=== PATIENT | female | born 2000 | race American Indian/Alaskan Native ===

== ENCOUNTER 2022-06-12 14:06 | Emergency (ER) | payer OTHER ==
[2022-06-12 14:16] VITALS: BP 115/50; PULSE 90; RESP 18; TEMP 98.2; BMI 20.4
[2022-06-12] MEDS ORDERED: IBUPROFEN 400 MG TABLET (FP) PO ONE ×2 (15:21→16:25)
[2022-06-12 15:50] LABS: HCG,QUALITATIVE URINE Negative
[2022-06-12 16:25] LABS: EPI CELLS 32 /uL (0-25.1); HYALINE CASTS 3 /uL (0-3.1); PH,URINE 5.5 (5.0-8.0); URINE APPEARANCE TURBID; URINE BACTERIA 828 /uL (0-1359); URINE BILIRUBIN NEGATIVE (NEGATIVE); URINE COLOR DK YELLOW; URINE GLUCOSE (UA) NEGATIVE (NEGATIVE); URINE KETONE 3+ (NEGATIVE); URINE LEUK ESTERASE 3+ (NEGATIVE); URINE NITRITE NEGATIVE (NEGATIVE); URINE PROTEIN 2+ (NEGATIVE); URINE RBC 668 /uL (0-23.9); URINE WBC 19225 /uL (0-25.8)
[2022-06-12] MEDS ORDERED: CEFPODOXIME PROXETIL 100 MG TABLET PO ONE (16:32)
== END 2022-06-12 18:12 | disposition home or self-care (01) ==
LOC: JER 14:06
DX: N39.0 Urinary tract infection, site not specified (principal)
CPT/HCPCS: 76775-TC; 81003; 84703; 99284-25

== ENCOUNTER 2023-09-16 23:46 | Emergency (ER) | payer OTHER ==
[2023-09-16 23:52] VITALS: TEMP 99.1; BMI 18.8
[2023-09-17] MEDS: ONDANSETRON 4 MG/2 ML VIAL IVPUSH ONE (01:27)
[2023-09-17] MEDS ORDERED: METOCLOPRAMIDE HCL INJECTION 10 MG/2 ML VIAL ONE (01:37)
[2023-09-17] MEDS ORDERED: FAMOTIDINE 20 MG/50 ML IVPB 20 MG/50 ML MG IVPB ONE (01:38)
[2023-09-17] MEDS: LACTATED RINGERS SOLUTION 1000 ML INFUS.BAG IV ONE ×2 (01:50→02:50)
[2023-09-17] MEDS: METOCLOPRAMIDE HCL INJECTION 10 MG/2 ML VIAL IVPUSH ONE (01:57)
[2023-09-17 02:02] LABS: BASO % 0.3 % (0-2.0); EOS % 0.2 % (0-4.5); HEMATOCRIT 41.1 % (32.4-45.2); HEMOGLOBIN 14.3 GM/dL (10.7-15.3); LYMPH % 17.5 % (8-40); MCH 28.6 pg (25.7-33.7); MCHC 34.8 g/dl (32.0-36.0); MEAN CELL VOLUME 82.1 fl (80-96); MEAN PLT VOLUME 8.5 fl (7.5-11.1); MONO % 7.4 % (3.8-10.2); NEUT % 74.6 % (42.8-82.8); PLATELET COUNT 202 10^3/uL (134-434); RBC 5.01 M/mm3 (3.60-5.2); RDW 13.1 % (11.6-15.6); WHITE BLOOD COUNT 4.8 K/mm3 (4.0-10.0)
[2023-09-17 02:21] LABS: POTASSIUM 4.5 mmol/L (3.5-5.1)
[2023-09-17 02:23] LABS: CALCIUM 8.6 mg/dL (8.5-10.1)
[2023-09-17 02:24] LABS: BLOOD UREA NITROGEN 8.6 mg/dL (7-18)
[2023-09-17] MEDS ORDERED: KETOROLAC TROMETHAMINE 15 MG/ML VIAL ONE (02:26)
[2023-09-17 02:27] LABS: CREATININE 0.7 mg/dL (0.55-1.3)
[2023-09-17 02:28] LABS: BILIRUBIN,TOTAL 0.5 mg/dL (0.2-1); TOT PROT 7.9 g/dl (6.4-8.2)
[2023-09-17 02:45] LABS: MAGNESIUM 1.6 mg/dL (1.8-2.4)
[2023-09-17] MEDS: FAMOTIDINE 20 MG/50 ML IVPB 20 MG/50 ML MG IVPB ONE (02:49)
[2023-09-17] MEDS: KETOROLAC TROMETHAMINE 30 MG/1 ML VIAL IVPUSH ONE (02:50)
[2023-09-17] MEDS ORDERED: MAGNESIUM SULFATE IN WATER 2 GM/50 ML IVPB IVPB ONE (03:44)
[2023-09-17] MEDS: MAGNESIUM SULFATE IN WATER 2 GM/50 ML IVPB IVPB ONE (03:55)
[2023-09-17 04:08] VITALS: BP 101/47; PULSE 110; RESP 16
== END 2023-09-17 04:40 | disposition home or self-care (01) ==
LOC: JER 23:46
PROC: 3E033GC Introduction of Other Therapeutic Substance into Peripheral Vein, Percutaneous Approach (ICD-10-PCS; principal; 2023-09-17)
PROC: 3E033GC Introduction of Other Therapeutic Substance into Peripheral Vein, Percutaneous Approach (ICD-10-PCS; 2023-09-17)
PROC: 3E033GC Introduction of Other Therapeutic Substance into Peripheral Vein, Percutaneous Approach (ICD-10-PCS; 2023-09-17)
PROC: 3E0333Z Introduction of Anti-inflammatory into Peripheral Vein, Percutaneous Approach (ICD-10-PCS; 2023-09-17)
DX: J34.89 Other specified disorders of nose and nasal sinuses (principal); R52 Pain, unspecified; R53.81 Other malaise; J02.9 Acute pharyngitis, unspecified; R11.2 Nausea with vomiting, unspecified; R50.9 Fever, unspecified; R63.0 Anorexia; R09.81 Nasal congestion; M79.10 Myalgia, unspecified site; J10.1 Influenza due to other identified influenza virus with other respiratory manifestations; Z20.822 Contact with and (suspected) exposure to COVID-19
CPT/HCPCS: 0241U-QW; 36415; 71046-TC-FY; 80053; 83735; 84703; 85025; 99284-25

== ENCOUNTER 2023-10-29 21:30 | Emergency (ER) | payer OTHER ==
[2023-10-29 21:37] VITALS: BP 100/63; PULSE 78; RESP 20; TEMP 98.1; BMI 20.7
[2023-10-29] MEDS ORDERED: LIDOCAINE HCL 1%, 10 MG/ML (20ML VIAL) ONE (22:30)
== END 2023-10-29 23:04 | disposition home or self-care (01) ==
LOC: JERFT 21:30
DX: S00.452A Superficial foreign body of left ear, initial encounter (principal); H92.02 Otalgia, left ear; W45.8XXA Other foreign body or object entering through skin, initial encounter
CPT/HCPCS: 99282-25

== ENCOUNTER 2024-01-23 17:47 | Emergency (ER) | payer OTHER ==
[2024-01-23 18:20] VITALS: BP 110/59; PULSE 95; RESP 20; TEMP 98.2; BMI 23.6
[2024-01-23 19:00] LABS: EPI CELLS 10 /uL (0-25.1); HYALINE CASTS 0 /uL (0-3.1); PH,URINE 5.5 (5.0-8.0); URINE APPEARANCE CLOUDY; URINE BACTERIA 151 /uL (0-1359); URINE BILIRUBIN NEGATIVE (NEGATIVE); URINE COLOR YELLOW; URINE GLUCOSE (UA) NEGATIVE (NEGATIVE); URINE KETONE TRACE (NEGATIVE); URINE LEUK ESTERASE 3+ (NEGATIVE); URINE NITRITE NEGATIVE (NEGATIVE); URINE PROTEIN 1+ (NEGATIVE); URINE RBC 1317 /uL (0-23.9); URINE WBC 3134 /uL (0-25.8)
[2024-01-23 19:01] LABS: HCG,QUALITATIVE URINE Negative
[2024-01-23] MEDS ORDERED: SULFAMETHOXAZOLE/TRIMETHOPRIM 800MG/160MG D.S. TABLET ONE (19:08)
[2024-01-23] MEDS: SULFAMETHOXAZOLE/TRIMETHOPRIM 800MG/160MG D.S. TABLET PO ONE (19:20)
== END 2024-01-23 20:00 | disposition home or self-care (01) ==
LOC: JER 17:47 → JERFT 17:47
DX: M54.50 Low back pain, unspecified (principal); N39.0 Urinary tract infection, site not specified; R30.0 Dysuria; R10.30 Lower abdominal pain, unspecified
CPT/HCPCS: 81003; 84703; 87086; 87186; 99283-25

== ENCOUNTER 2024-05-30 15:01 | Emergency (ER) | payer OTHER ==
[2024-05-30 15:36] VITALS: BP 117/90; PULSE 67; RESP 18; TEMP 98.1
[2024-05-30 16:36] LABS: EOS % 6.5 % (0-4.5); HEMATOCRIT 39.9 % (32.4-45.2); HEMOGLOBIN 13.2 GM/dL (10.7-15.3); LYMPH % 34.2 % (8-40); MCH 27.3 pg (25.7-33.7); MCHC 33.1 g/dl (32.0-36.0); MEAN CELL VOLUME 82.6 fl (80-96); MEAN PLT VOLUME 8.1 fl (7.5-11.1); MONO % 7.8 % (3.8-10.2); NEUT % 50.5 % (42.8-82.8); PLATELET COUNT 304 10^3/uL (134-434); RBC 4.83 M/mm3 (3.60-5.2); RDW 13.2 % (11.6-15.6); WHITE BLOOD COUNT 3.7 K/mm3 (4.0-10.0)
[2024-05-30 16:54] LABS: POTASSIUM 4.4 mmol/L (3.5-5.1)
[2024-05-30 16:57] LABS: ALBUMIN 3.8 g/dl (3.4-5.0); BLOOD UREA NITROGEN 11.1 mg/dL (7-18); CALCIUM 9.3 mg/dL (8.5-10.1)
[2024-05-30 17:00] LABS: CREATININE 0.6 mg/dL (0.55-1.3)
[2024-05-30 17:02] LABS: BILIRUBIN,TOTAL 0.4 mg/dL (0.2-1); TOT PROT 7.2 g/dl (6.4-8.2)
[2024-05-30 17:27] LABS: EPI CELLS >36 /uL (0-25.1); HYALINE CASTS 0 /uL (0-3.1); URINE APPEARANCE CLOUDY; URINE BACTERIA 672 /uL (0-1359); URINE BILIRUBIN NEGATIVE (NEGATIVE); URINE COLOR YELLOW; URINE GLUCOSE (UA) NEGATIVE (NEGATIVE); URINE KETONE NEGATIVE (NEGATIVE); URINE LEUK ESTERASE 1+ (NEGATIVE); URINE NITRITE NEGATIVE (NEGATIVE); URINE PROTEIN NEGATIVE (NEGATIVE); URINE RBC 33 /uL (0-23.9); URINE UROBILINOGEN 0.2 mg/dL (0.2-1.0); URINE WBC 51 /uL (0-25.8)
[2024-05-30 17:28] LABS: HCG,QUALITATIVE URINE Negative
[2024-05-30 20:46] LABS: HIV INTERPRETATION PRESUMPTIVE POSITIVE (NEGATIVE)
== END 2024-05-30 19:28 | disposition home or self-care (01) ==
LOC: JER 15:01
DX: R07.9 Chest pain, unspecified (principal); R10.30 Lower abdominal pain, unspecified
CPT/HCPCS: 36415; 71046-TC-FY; 76830-TC; 80053; 81003; 82550; 84484; 84703; 85025; 86803; 87086; 87389; 93005; 93010; 99285-25

== ENCOUNTER 2024-07-16 08:24 | Emergency (ER) | payer SELFPAY ==
[2024-07-16 08:40] VITALS: BP 102/67; PULSE 95; RESP 18; TEMP 98.9; BMI 20.7
== END 2024-07-16 10:34 | disposition home or self-care (01) ==
LOC: JER 08:24
DX: J10.1 Influenza due to other identified influenza virus with other respiratory manifestations (principal); R09.81 Nasal congestion; M79.10 Myalgia, unspecified site; Z20.822 Contact with and (suspected) exposure to COVID-19
CPT/HCPCS: 0241U-QW; 99283-25